=== PATIENT | male | born 1985 | race Caucasian/White ===

== ENCOUNTER 2021-10-17 04:01 | Emergency (ER) | payer OTHER ==
[~2021-10-17] VITALS: Ht 182.9 cm; Wt 102.0 kg
[2021-10-17] MEDS ORDERED: KETOROLAC 30MG/ML VIAL IV STA (04:23)
[2021-10-17] MEDS ORDERED: ONDANSETRON HCL 4MG/2ML INJ IV STA (04:23)
[2021-10-17] MEDS ORDERED: SODIUM CHLORIDE 0.9% 1,000 ML IV ONE (04:30)
[2021-10-17 04:42] LABS: HEMATOCRIT. 47.2 % (42.0-52.0); HEMOGLOBIN. 16.3 g/dL (14.0-18.0); MEAN CORPUSCULAR HEMOGLOBIN 31.2 pg (28.0-32.0); MEAN CORPUSCULAR VOLUME 90.4 fL (80.0-94.0); MEAN PLATELET VOLUME 7.9 fl (7.4-10.4); PLATELET 147 x1000/uL (130-400); RED BLOOD CELL COUNT 5.22 mill/uL (4.7-6.1); RED CELL DISTRIBUTION WIDTH 12.9 % (11.6-14.6)
[2021-10-17 04:49] LABS: CHLORIDE 104 mEq/L (98-107)
[2021-10-17 05:07] LABS: PLATELET ESTIMATE NORMAL
[2021-10-17] MEDS ORDERED: VANCOMYCIN 1 G PREMIX 200 ML IV ONE (05:30)
[2021-10-17] MEDS ORDERED: SODIUM CHLORIDE 0.9% 1000ML BAG (SEPSIS BOLUS) IV ONE (05:30)
[2021-10-17] MEDS ORDERED: PIPERACILLIN/TAZ 3.375G PREMIX 50 ML IV ONE (05:30)
[2021-10-17 07:24] LABS: CLARITY URINE CLEAR (CLEAR); COLOR URINE YELLOW (YELLOW); KETONES URINE NEGATIVE (NEGATIVE); LEUKOCYTE ESTERASE URINE NEGATIVE (NEGATIVE); NITRITE URINE NEGATIVE (NEGATIVE); OCCULT BLOOD URINE NEGATIVE (NEGATIVE); PROTEIN URINE NEGATIVE (NEGATIVE); UROBILINOGEN URINE 0.2 E.U./dL (0.2-1.0)
[2021-10-17] MEDS ORDERED: BENZ-16 PO (07:30)
[2021-10-17] MEDS ORDERED: LEVO250T58 PO (07:30)
[2021-10-17] MEDS ORDERED: METOCLOPRAMIDE HCL 10MG/2ML VIAL IV ONE (07:45)
[2021-10-17] MEDS ORDERED: KETOROLAC 30MG/ML VIAL IV ONE (07:45)
[2021-10-17 11:00] VITALS: BP 146/80
== END 2021-10-17 13:10 | disposition home or self-care (01) ==
LOC: ER 04:52
DX: J18.9 Pneumonia, unspecified organism (principal); Z20.822 Contact with and (suspected) exposure to COVID-19
CPT/HCPCS: 36415; 70450; 70553; 71045; 80053; 81003; 83605; 83690; 85025; 87426; 87804; 96361; 96365; 96368; 96375; 99285; J1885; J2405; J2543; J2765; J3370; J7030